=== PATIENT | female | born 1990 | race Caucasian/White ===

== ENCOUNTER 2022-04-15 10:27 | Emergency (ER) | payer MEDICAID ==
[~2022-04-15] VITALS: Ht 157.5 cm; Wt 70.3 kg
[2022-04-15 10:51] VITALS: BP_SYST 101
[2022-04-15 11:43] LABS: BILIRUBIN,URINE NEGATIVE (NEGATIVE); BLOOD, URINE NEGATIVE (NEGATIVE); CLARITY/URINE CLEAR (CLEAR); COLOR,URINE YELLOW (YELLOW); GLUCOSE,URINE NEGATIVE (NEGATIVE); KETONES,URINE NEGATIVE (NEGATIVE); LEUKOCYTE ESTERASE ,URINE NEGATIVE (NEGATIVE); NITRITE, URINE NEGATIVE (NEGATIVE); PROTEIN URINE NEGATIVE (NEGATIVE); UROBILINOGEN,URINE 0.2 (0.2-1.0)
[2022-04-15] MEDS ORDERED: NAPR-688 PO (11:51)
== END 2022-04-15 12:08 | disposition home or self-care (01) ==
LOC: SED 10:27
DX: R10.2 Pelvic and perineal pain (principal); Z79.899 Other long term (current) drug therapy
CPT/HCPCS: 81003; 81025; 99283